=== PATIENT | male | born 1990 | race Caucasian/White ===

== ENCOUNTER 2023-12-03 19:36 | Emergency (ER) | payer OTHER, SELFPAY ==
[2023-12-03 19:36] VITALS: BP 152/117; PULSE 128; RESP 24; TEMP 36.6; O2SAT 100; BMI 33.5
[2023-12-03] MEDS: HYDROmorphone 1 MG/ML Syringe 2 MG IM (20:14)
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
[2023-12-03] MEDS: oxyCODONE 5 MG Tablet 10 MG PO (21:40)
[2023-12-03] MEDS: Silver Sulfadiazine 1% Crm 50 gm Bottle 1 APPLIC TOPICAL (21:41)
[2023-12-03 22:00] VITALS: BP 183/114; PULSE 88; RESP 16; TEMP 36.6; O2SAT 99
== END 2023-12-03 22:06 | disposition home or self-care (01) ==
PROVIDERS: Emergency Provider Emergency Medicine; Visit Provider Emergency Medicine
DX: T21.24XA Burn of second degree of lower back, initial encounter (principal); F17.290 Nicotine dependence, other tobacco product, uncomplicated; T23.252A Burn of second degree of left palm, initial encounter; T22.112A Burn of first degree of left forearm, initial encounter; X19.XXXA Contact with other heat and hot substances, initial encounter
CPT/HCPCS: 96372; 99283

== ENCOUNTER 2023-12-26 13:41 | Emergency (ER) | payer OTHER, SELFPAY ==
[2023-12-26 13:42] VITALS: BP 157/100; PULSE 67; RESP 18; TEMP 36.2; O2SAT 99; BMI 32.6
--- NOTE | 2023-12-26 13:50 | EDS_ITS ---
HPI History of Present Illness Chief Complaint: Upper Extremity Injury Detail of Chief Complaint: Left anterior chest pain x 2 weeks Informant: patient Occured/Mechanism Comment: No history of trauma other than heavy lifting pushing objects at work Onset/Context/Timing Onset: Weeks Context: Sudden Onset Timing: Continuous Quality of Pain: Dull Location: Near left pectoralis muscle groove near the shoulder Current Severity: Mild Maximum Severity: Moderate Worsened by: Certain movements Relieved by: Arm abducted past 90 degrees Associated Symptoms Associated Symptoms: Negative for Parasthesia, Weakness or Loss of Funtion Narrative Narrative: Patient is a 33-year-old male. He is a smoker of 1 pack/week. He does have history of hypertension. He went to the urgent care. Urgent care sent him here because concerned this may represent cardiac disease. Patient endorses pain with movement. Certain movements cause increased pain. Certain movements decrease the pain. There is no exertional component. There is no dyspnea, diaphoresis, nausea etc. There is no history of PE or DVT reviewing prior records. He denies any direct trauma. He denies loss of use of the left upper extremity. He denies paresthesia, anesthesia or motor aches. He denies radicular pain. Prior similar symptoms: No Recent Illness/Hospitalization: No [facility] Medical History (Updated 12/26/23 @ 13:[address] Estrada Dye MD) Migraines Home Medications ?Medication ?Instructions ?Recorded ?Last Taken ?Type oxycodone-acetaminophen 5 mg-325 1 tab PO Q6H PRN pain 3 days #14 12/03/23 Unknown Rx mg tablet (Percocet) tabs naproxen 500 mg tablet 500 mg PO BID #14 tabs 12/26/23 Unknown Rx Allergy/AdvReac Type Severity Reaction Status Date / Time No Known Allergies Allergy Verified 12/26/23 13:42 Surgical History History of mandibular surgery Social History Smoking Status: Current every day smoker tobacco type: e-cigarettes ROS ROS ED Constitutional Constitutional ED: Denies chills, fever(s), malaise or weight loss Eyes Eyes: Reports none ENT ENT ED: Reports none Cardiovascular Cardiovascular: Reports as per HPI, chest pain and chest pain at rest; Denies abdominal bloating, chest pain with activity, claudication, clubbing, cold extremities, cyanosis, diaphoresis, dizziness, dyspnea, rapid heart rate, syncope or weakness in extremities Respiratory/Chest Respiratory/Chest: Reports as per HPI and none Gastrointestinal Gastrointestinal: Reports none; Denies abdominal pain, nausea or vomiting Integumentary Reports systems reviewed and no addt'l complaints, except as documented Neurologic Neurologic: Reports none Hematologic/Lymphatic Hematologic/Lymphatic: Denies easy bleeding or easy bruising EXAM Physical Exam Const Vital Signs: 12/26/23 13:42 Temperature 97.2 F L Temperature Source Temporal Pulse Rate 67 Respiratory Rate 18 Blood Pressure 157/100 H Blood Pressure Mean 119 Pulse Ox 99 Oxygen Delivery Method Room Air Positive well nourished, well developed and no limitations General Appearance ED: active, cooperative, comfortable, well kempt and well developed Orientation / Consciousness: awake Exam Limitations: no limitations Nutritional Appearance: overweight HEENT Reports normocephalic normocephalic and normal to inspection Nose: external nose normal External Ear: external ears normal Eyes PERRL, EOMs intact bilaterally and conjunctivae normal Neck full ROM, nuchal rigidity, no lymphadenopathy, supple, no meningeal signs and no JVD Chest Wall inspection of chest normal and palpation of chest normal Resp normal respiratory effort, normal air movement, no retractions and no use of accessory muscles Cardio regular rate, regular rhythm, S1 normal heart sound, S2 normal heart sound, no murmurs, no rub, no gallops, no clicks, no JVD and peripheral pulses 2+ throughout Palpation: normal PMI Back/Spine normal ROM Extremity normal to inspection, full ROM, normal capillary refill, no joint enlargement, no clubbing, cyanosis or edema, no calf tenderness and no pedal edema Neuro oriented x3 and CN's II-XII intact bilaterally Psych mental status grossly normal, thought process normal, cooperative, affect normal, speech normal and activity/motor behavior normal Skin no rashes or lesions noted, no wounds, skin turgor normal, no jaundice, no petechiae and no mottling MDM MDM MDM Narrative Medical decision making narrative: Patient has reproducible pain and pain with movement. Fact it has been continuous for 2 weeks with no associated symptoms in my opinion this is musculoskeletal. This is not cardiac. Patient has no contraindication NSAIDs. Recommendation was ice and NSAIDs. Discharge Plan Triage Chief Complaint: Upper Extremity Injury ED Provider: Estrada Dye Dx/Rx/DC Orders Clinical Impression: Chest wall muscle strain, History of hypertension Instructions: ED High Blood Pressure Hypertension, ED Chest Wall Strain Prescriptions: New naproxen 500 mg tablet 500 mg PO BID Qty: 14 0RF No Action oxycodone-acetaminophen [Percocet] 5-325 mg tablet 1 tab PO Q6H PRN (Reason: pain) 3 Days Qty: 14 0RF Primary Care Provider: Care Physician,No Primary Referrals: Noel Kahn MD [Non-Staff] - 1-2 Weeks Care Physician,No Primary [Primary Care Provider] - Print Language: Slovenian Disposition Disposition: Home, Self Care
[2023-12-26 14:15] VITALS: BP 146/99; PULSE 60; RESP 18; TEMP 36.2; O2SAT 96
== END 2023-12-26 14:17 | disposition home or self-care (01) ==
PROVIDERS: Emergency Provider Emergency Medicine; Visit Provider Emergency Medicine
DX: S29.011A Strain of muscle and tendon of front wall of thorax, initial encounter (principal); F17.290 Nicotine dependence, other tobacco product, uncomplicated; I10 Essential (primary) hypertension; X50.0XXA Overexertion from strenuous movement or load, initial encounter; Y99.0 Civilian activity done for income or pay
CPT/HCPCS: 99282

== ENCOUNTER 2024-09-25 18:29 | Emergency (ER) | payer OTHER, SELFPAY ==
[2024-09-25 18:29] VITALS: BP 170/113; PULSE 87; RESP 24; TEMP 36.1; O2SAT 99; BMI 36.1
--- NOTE | 2024-09-25 18:52 | EDS_ITS ---
HPI HPI - GI History of Present Illness Chief Complaint: GI Bleed Informant: patient Narrative Narrative: 34-year-old male presenting to the emergency room out of concern for GI bleed. Patient notes that last night he went out to dinner and had an openface steak sandwich. He states he had early satiety. He states that he went home and had vomiting. At the end of 5 vomiting episodes he noted some bright red blood in the vomit. He notes that this morning he ate a light breakfast but again got full early and just really has not felt much like eating. He has not noticed any black tarry stools. He has not had this problem before. He notes over the past week and a half he has been drinking more than normal about 1 pint of whiskey every 2 days. He notes no recent pain with the eating. [facility] Medical History Migraines Home Medications ?Medication ?Instructions ?Recorded ?Last Taken ?Type oxycodone-acetaminophen 5 mg-325 1 tab PO Q6H PRN pain 3 days #14 12/03/23 Unknown Rx mg tablet (Percocet) tabs naproxen 500 mg tablet 500 mg PO BID #14 tabs 12/25 Unknown Rx pantoprazole 40 mg tablet,delayed 40 mg PO DAILY #14 t abs 09/25/24 Unknown Rx release Allergy/AdvReac Type Severity Reaction Status Date / Time No Known Allergies Allergy Verified 09/25/24 18:29 Surgical History History of mandibular surgery Social History Smoking Status: Current every day smoker tobacco type: e-cigarettes ROS ROS ED Constitutional Constitutional ED: Denies chills or weight loss Eyes Eyes: Denies change in vision or diplopia ENT ENT ED: Denies ear pain, rhinorrhea or sore throat Cardiovascular Cardiovascular: Denies chest pain, orthopnea, palpitations or racing heartbeat Respiratory/Chest Respiratory/Chest: Denies cough, dyspnea or orthopnea Gastrointestinal Gastrointestinal: Reports vomiting and other Details: See history of present illness ; Denies abdominal pain, diarrhea or nausea Genitourinary Genitourinary ED: Denies dysuria, hematuria or urinary frequency Musculoskeletal Musculoskeletal: Denies arthralgias or myalgias Integumentary Denies abscess or rash Neurologic Neurologic: Denies headache(s) or weakness Psychiatric Psychiatric: Denies anxiety, depression, suicidal ideation or suicidal thoughts Endocrine Endocrinology: Denies polydipsia, polyphagia or polyuria Allergic/Immunologic Allergic/Immunologic ED: Denies mouth swelling, tongue swelling or urticaria EXAM Physical Exam Const Vital Signs: 09/25/24 18:29 Temperature 97 F L Temperature Source Temporal Pulse Rate 87 Respiratory Rate 24 H Blood Pressure 170/113 H Blood Pressure Mean 132 Pulse Ox 99 Oxygen Delivery Method Room Air Positive well nourished and well developed General Appearance ED: well developed HEENT Reports normocephalic, head/scalp atraumatic and moist mucous membranes Eyes PERRL and EOMs intact bilaterally Neck no lymphadenopathy, supple and no JVD Resp normal respiratory effort and clear to auscultation bilaterally Cardio regular rate, regular rhythm and no murmurs GI normal to inspection, nondistended, normoactive bowel sounds and non-tender GI Narrative: No obvious stigmata of liver disease Palpation: soft Back/Spine no CVA tenderness and normal ROM Extremity normal to inspection General Extremety ED: Negative for edema General Extremity: Negative for edema Neuro oriented x3 and CN's II-XII intact bilaterally Sensorium / Orientation: alert Motor Exam: strength 5/5 throughout Psych mental status grossly normal Mood & Affect: Negative for depressed or tearful Skin no rashes or lesions noted and no wounds MDM MDM MDM Narrative Medical decision making narrative: Differential diagnosis includes but not limited to Sravani-Neil tear esophageal and gastric alcohol gastritis gastric ulcer duodenal ulcer esophageal varices pancreatitis Hemoglobin is 13.5 with a platelet count of 186 white count is 7. BMP is within normal limits. Transaminases are mildly elevated with an AST of 106 ALT of 115. Normal lipase. Clinically the patient experienced an episode of bright red blood in his emesis after 5 episodes of vomiting. This in the setting of increased alcohol use over the past week and a half. There may be an association of alcohol gastritis. This could be Sravani-Neil. But if he appears clinically stable. When asked that he refrain from any alcohol use. We can place him on some pantoprazole. If he continues to have symptoms he should return or follow-up with gastroenterology. He is to monitor his stool. History & Record Review Discussion w/independent historian: Patient Lab Data Labs: Laboratory Results - last 24 hr 09/25/24 09/25/24 09/25/24 19:06 19:06 19:26 WBC Cancelled 7.0 Corrected WBC Cancelled RBC Cancelled 4.13 L Hgb Cancelled 13.5 Hct Cancelled 38.2 L MCV Cancelled 92.5 MCH Cancelled 32.7 H MCHC Cancelled 35.3 RDW Std Deviation Cancelled 40.0 RDW Coeff of Rosa Elena Cancelled 11.8 Plt Count Cancelled 186 MPV Cancelled 9.0 Immature Gran % (Auto) Cancelled 0.300 Neut % (Auto) Cancelled 56.3 Lymph % (Auto) Cancelled 32.1 [place] % (Auto) Cancelled 8.6 Eos % (Auto) Cancelled 2.1 Baso % (Auto) Cancelled 0.6 Absolute Neuts (auto) Cancelled 4.0 Absolute Lymphs (auto) Cancelled 2.25 Total Counted Cancelled Neutrophils % (Manual) Cancelled Band Neutrophils % Cancelled Lymphocytes % (Manual) Cancelled Monocytes % (Manual) Cancelled Eosinophils % (Manual) Cancelled Basophils % (Manual) Cancelled Metamyelocytes % Cancelled Myelocytes % Cancelled Promyelocytes % Cancelled Blast Cells % Cancelled Plasma Cell % (Manual) Cancelled Other Cells % Cancelled Nucleated RBC % Cancelled 0 Nucleated RBCs/100 WBC Cancelled Differential Comment Cancelled Diff Path Review Cancelled Hypersegmented Neuts Cancelled Atypical Lymphocytes Cancelled Reactive Lymphocytes Cancelled Smudge Cells Cancelled Toxic Granulation Cancelled Toxic Vacuolation Cancelled Dohle Bodies Cancelled Kiko Rods Cancelled Platelet Estimate Cancelled Plt Morphology Comment Cancelled RBC Morphology Cancelled Cancelled Polychromasia Cancelled Hypochromasia Cancelled Basophilic Stippling Cancelled Anisocytosis Cancelled Microcytosis Cancelled Macrocytosis Cancelled Spherocytes Cancelled Sickle Cells Cancelled Target Cells Cancelled Tear Drop Cells Cancelled Ovalocytes Cancelled Stomatocytes Cancelled [place] Bodies Cancelled Peterson Cells Cancelled Bite Cells Cancelled Crenated Cell Cancelled Acanthocytes (Spur) Cancelled Rouleaux Cancelled Schistocytes Cancelled Sodium 136 Potassium 4.9 Chloride 105 Carbon Dioxide 23.0 Anion Gap 8 BUN 12 Creatinine 0.87 Estim Creat Clear Calc 135.25 Est GFR (MDRD) Af Amer 127 Est GFR (MDRD) Non-Af 105 BUN/Creatinine Ratio 13.8 Glucose 103 Calcium 8.9 Total Bilirubin 0.50 Direct Bilirubin 0.08 AST 106 H ALT 115 H Alkaline Phosphatase 84 Total Protein 7.1 Albumin 3.7 Globulin 3.4 Lipase 21 L Discharge Plan Triage Chief Complaint: GI Bleed ED Provider: Markie Samayoa Dx/Rx/DC Orders Clinical Impression: Hematemesis, Gastritis Instructions: ED Gastritis (Adult), ED Upper GI Bleeding (Stable) Prescriptions: New pantoprazole 40 mg tablet,delayed release (DR/EC) 40 mg PO DAILY Qty: 14 0RF No Action oxycodone-acetaminophen [Percocet] 5-325 mg tablet 1 tab PO Q6H PRN (Reason: pain) 3 Days Qty: 14 0RF naproxen 500 mg tablet 500 mg PO BID Qty: 14 0RF Primary Care Provider: Care Physician,No Primary Referrals: Friend,Alex, DO [Med Staff - Active Staff] - 10-14 Days if not better Care Physician,No Primary [Primary Care Provider] - Print Language: Citizen Of [place] Disposition Disposition: Home, Self Care
[2024-09-25 19:31] LABS: Absolute Lymphocyte Count 2.25 X10^3/uL (0.83-4.51); Basophil# 0.04 X10^3/uL; Basophil% 0.6 % (0-1); Eosinophil# 0.15 X10^3/uL; Eosinophils% 2.1 % (0-5); Hematocrit 38.2 % (40-54); Hemoglobin 13.5 g/dL (13.0-16.5); Lymphocyte # 2.25 X10^3/ul (0.83-4.51); Lymphocyte % 32.1 % (19-41); Mean Corp Hgb Conc 35.3 g/dL (32-36); Mean Corpuscular Hgb 32.7 pg (27.0-32.0); Mean Corpuscular Volume 92.5 fL (80-94); Monocyte% 8.6 % (0-10); NRBC Flagged by Analyzer 0 % (0-5); Neutrophil # 3.95 X10^3/uL (2.7-7.7); Neutrophil % 56.3 % (47-70); Platelet Count 186 K/mm3 (150-450); RBC Distribution Width CV 11.8 % (11.6-14.6); Red Blood Count 4.13 M/mm3 (4.6-6.2)
[2024-09-25 19:41] LABS: AST(SGOT) 106 U/L (15-37); Alanine Aminotransfer ALT/SGPT 115 U/L (16-61); Albumin, Serum 3.7 g/dL (3.2-5.0); Alkaline Phosphatase 84 U/L (45-117); Anion Gap 8 (5-15); BUN 12 mg/dL (7-18); BUN/Creat Ratio 13.8 RATIO (10-20); Bilirubin, Direct 0.08 mg/dL (0.00-0.30); Calcium,Total 8.9 mg/dL (8.5-10.1); Chloride 105 mmol/L (98-107); Creatinine, Serum 0.87 mg/dL (0.70-1.30); EST Glomerular Filtration Rate 105 mL/min (>60); Est Glom Filt Rate - Afr Amer 127 mL/min (>60); Estimated Creatinine Clearance 135.25 ml/min; Globulin 3.4 g/dL (2.2-4.2); Glucose 103 mg/dL (74-106); Lipase 21 U/L (73-393); Potassium 4.9 mmol/L (3.5-5.1); Protein, Total 7.1 g/dL (6.4-8.2); Sodium Level 136 mmol/L (136-145)
[2024-09-25] MEDS: Pantoprazole Sodium 40 MG Tablet PO (20:06)
--- NOTE | 2024-09-25 21:16 | CM.ED ---
Social Work Reason for visit: No PCP SW met with patient who stated he does have a PCP at this time and did not need resources. No further needs identified. Marti Duarte, CROSS ENTERPRISE INTEGRATOR, CASH APPLICATION REPRESENTATIVE
== END 2024-09-25 20:08 | disposition home or self-care (01) ==
PROVIDERS: Emergency Provider Emergency Medicine; Visit Provider Emergency Medicine
DX: K92.0 Hematemesis (principal); K29.70 Gastritis, unspecified, without bleeding; Z79.899 Other long term (current) drug therapy; F17.290 Nicotine dependence, other tobacco product, uncomplicated
CPT/HCPCS: 80048; 80076; 83690; 85025; 99284; A4216